=== PATIENT | male | born 1995 | race Caucasian/White ===

== ENCOUNTER 2019-09-26 13:44 | Emergency (ER) | payer BC ==
[~2019-09-26] VITALS: Ht 182.9 cm; Wt 73.9 kg
[2019-09-26 13:45] VITALS: BP 138/77
[2019-09-26] MEDS ORDERED: KETO10TAB PO (14:51)
== END 2019-09-26 14:53 | disposition home or self-care (01) ==
LOC: M ED 13:44
DX: S46.812A Strain of other muscles, fascia and tendons at shoulder and upper arm level, left arm, initial encounter (principal); X58.XXXA Exposure to other specified factors, initial encounter; Y92.89 Other specified places as the place of occurrence of the external cause